=== PATIENT | male | born 1995 ===

== ENCOUNTER 2023-01-31 09:49 | Outpatient (CLI) | payer OTHER, SELFPAY ==
--- NOTE | ~2023-01-31 | CT_ITS ---
EXAMINATION: CTA brain carotid DATE: 01/31/2023 10:36 INDICATION: TINNITUS LT EAR TECHNIQUE: Computed tomographic angiography (CTA) of the head was performed without and with 100 mL O mnipaque-350 intravenous contrast. CTA of the neck was performed with intravenous contrast. Automated exposure control and iterative reconstruction technique were employed. The dose-length product was 1 595.12 mGy-cm. Maximum intensity projection and volume rendered 3D-reconstructions were created by yissel ledezma technologist on a separate workstation. COMPARISON: None. FINDINGS: CT BRAIN: No acute large vessel infarct, intracranial hemorrhage, mass, or hydrocephalus. Minimal mucosal thick ening and small retention cyst/polyp in the left inferior maxillary sinus. CTA HEAD: No large vessel occlusion, aneurysm, high flow vascular malformation, nidus or extravasation. CTA NECK: Aortic arch and proximal great vessels: Normal arch anatomy. No plaque. Right common carotid, carotid bifurcation, and internal carotid artery: No plaque.There is 0% stenosi s of the proximal right internal carotid artery relative to normal distal artery lumen diameter (NASC ET criteria). Left common carotid, carotid bifurcation, and internal carotid artery: No plaque.There is 0% stenosis of the proximal left internal carotid artery relative to normal distal artery lumen diameter (NASCET criteria). Vertebral arteries: No significant plaque or stenosis. Vertebral arteries co-dominant. Other findings: None. IMPRESSION: Normal CTA brain carotid findings. Reviewed, dictated and finalized at location K.
== END 2023-01-31 09:50 ==
LOC: MICIMG 09:50
PROVIDERS: PCP Student in an Organized Health Care Education/Training Program; Visit Provider Student in an Organized Health Care Education/Training Program
DX: H93.A2 Pulsatile tinnitus, left ear (principal)
CPT/HCPCS: 70496; 70498; Q9967